=== PATIENT | female | born 1975 | race Caucasian/White ===

== ENCOUNTER 2017-07-07 08:07 | Day surgery (SDC) | payer BC ==
[2017-07-04 11:15] VITALS: BMI 20.6
[2017-07-07] MEDS ORDERED: PROPOFOL 20 ML ONE ×3 (08:43)
[2017-07-07 09:33] VITALS: TEMP 97.5
[2017-07-07 13:09] VITALS: BP 112/61; PULSE 61
--- NOTE | 2017-07-08 12:53 | PATH ---
Surgical Pathology Report Patient Name: DAR TOMLIN [facility]. Rec. #: [id number] /Age/Gender: 1975 (Age: 42) / F Account: [id number] Location: U-ENDOSCOPY Taken: 07/07/2017 Received: 07/07/2017 Reported: 07/08/2017 Physicians: Brina Rowley M.D. Specimen(s) Received A: BX 2ND PORTION DUODENUM AND BULB B: BX ANTRUM Clinical History Preoperative diagnosis: Abdominal pain Postoperative diagnosis: GERD Final Diagnosis A. DUODENUM, SECOND PORTION AND BULB, BIOPSY: DUODENAL MUCOSA WITH NO PATHOLOGIC CHANGES. NO HISTOLOGIC EVIDENCE OF GLUTEN SENSITIVE ENTEROPATHY (CELIAC SPRUE) IDENTIFIED. B. STOMACH, ANTRUM, BIOPSY: FOCAL MILD CHRONIC GASTRITIS. IMMUNOSTAIN FOR H. PYLORI IS NEGATIVE. Electronically Signed Ronnie Hines M.D. Gross Description A. Received in formalin, labeled "biopsy second portion of duodenum and bulb" are 4 pack, irregular portions of soft tissue ranging from 0.2-0.4 cm. in greatest dimension. The specimens are submitted in toto in one cassette. B. Received in formalin, labeled "biopsy antrum" are 4 pack, irregular portions of soft tissue ranging from 0.2-0.5 cm. in greatest dimension. The specimens are submitted in toto in one cassette. 07/07/201707/07/2017
== END 2017-07-07 10:25 | disposition home or self-care (01) ==
LOC: JASU-ENDO 08:07
PROVIDERS: ATTEND Internal Medicine Gastroenterology
PROC: 0DB68ZX Excision of Stomach, Via Natural or Artificial Opening Endoscopic, Diagnostic (ICD-10-PCS; 2017-07-07)
PROC: 0DB98ZX Excision of Duodenum, Via Natural or Artificial Opening Endoscopic, Diagnostic (ICD-10-PCS; principal; 2017-07-07 09:00)
DX: R10.11 Right upper quadrant pain (principal); K21.0 Gastro-esophageal reflux disease with esophagitis
CPT/HCPCS: 84703; 88305-TC; 88342-TC

== ENCOUNTER 2018-10-16 13:50 | Emergency (ER) | payer BC ==
[2018-10-16 13:55] VITALS: BP 115/69; PULSE 74; TEMP 98.3; BMI 21.5
--- NOTE | 2018-10-16 13:58 | PDOC ---
Rapid Medical Evaluation Time Seen by Provider: 10/16/18 13:53 Medical Evaluation: Allergies Allergy/AdvReac Type Severity Reaction Status Date / Time No Known Drug Allergies Allergy Verified 04/11/17 14:16 10/16/18 13:53 I have performed a brief in-person evaluation of this patient. The patient presents with a chief complaint of:L evangelical BLOOM radiating to L ear since yesterday. Reports that she usually gets BLOOM 2 days prior to her menses but states menses not due for another week. States BLOOM does feel similar to prior HAs but has never radiated to her ear. Had to leave work early today. Taking OTC meds w/ no relief. No dizziness, visual changes, n/v. Pertinent physical exam findings:well agatha and stable I have ordered the following:upreg The patient will proceed to the ED for further evaluation. Discharge Disposition - Diagnosis Headache Qualifiers: Headache type: unspecified Headache chronicity pattern: unspecified pattern Intractability: intractable Qualified Code(s): R51 - Headache - Referrals - Patient Instructions - Post Discharge Activity
[2018-10-16] MEDS ORDERED: NAPROXEN 500 MG TABLET (FP) PO ONE (14:22)
[2018-10-16] MEDS ORDERED: KETOROLAC TROMETHAMINE 30 MG/1 ML VIAL IM ONE (14:23)
--- NOTE | 2018-10-16 14:30 | PDOC ---
History of Present Illness - General Chief Complaint: Headache Stated Complaint: MIGRAINE / PRESSURE LT EAR Time Seen by Provider: 10/16/18 13:53 History Source: Patient Exam Limitations: No Limitations - History of Present Illness Initial Comments: 10/16/18 14:23 43YOF with h/o menstrual migraines (states always 2 days before the start of her menstrual period) who p/w left-sided temporal headache gradual onset yesterday morning which resolved overnight with Advil, but recurred this morning about 2 hours after she awakened. She was at work and the pain was continuing, and she also notes ear pressure/popping and eye pressure, as well as radiation to the back left neck. She denies any recent f/c/n/v/d/c, vision changes, n/t/w focally, speech/swallow difficulties, neck rigidity, chest pain, SOB, cough, sore throat, or other symptoms. She has strange sensation when she urinates but does not describe this as pain. LMP was 529 and she endorses slight chance she could be . Has a large amount of stress in her daily life (two toddler twins at home and both she and her work full-time) but this is no different. Past History - Past Medical History Allergies/Adverse Reactions: Allergies Allergy/AdvReac Type Severity Reaction Status Date / Time No Known Drug Allergies Allergy Verified 10/16/18 13:55 Home Medications: Ambulatory Orders Escitalopram Oxalate [Lexapro -] 5 mg PO DAILY 04/11/17 Anemia: No Asthma: No Cancer: No Cardiac Disorders: No CVA: No COPD: No CHF: No Dementia: No Diabetes: No GI Disorders: Yes (INDIGESTION,IBS, CONSTIPATION) Disorders: No HTN: No Hypercholesterolemia: No Liver Disease: Yes (GALLSTONES) Seizures: No Thyroid Disease: No - Surgical History Abdominal Surgery: No Appendectomy: No Cardiac Surgery: No Cholecystectomy: No Lung Surgery: No Neurologic Surgery: No Orthopedic Surgery: No - Suicide/Smoking/Psychosocial Hx Smoking Status: No Smoking History: Never smoked Have you smoked in the past 12 months: No Number of Cigarettes Smoked Daily: 0 Hx Alcohol Use: Yes (socially) Drug/Substance Use Hx: No Substance Use Type: None Hx Substance Use Treatment: No Review of Systems - Review of Systems Able to Perform ROS?: Yes Comments:: 10/16/18 14:32 GEN: no fever, chills, malaise, generalized weakness, or weight change HEENT: ear fullness/popping, eye pressure, sore throat, or vision change CV: no chest pain, palpitations, lightheadedness, syncope, or edema RESP: no cough, wheezing, or SOB GI: no abdominal pain, nausea, vomiting, diarrhea, constipation, or white/black/ bloody stool : no dysuria, hematuria, incontinence, retention, bleeding, or discharge MSK: no neck/back pain, muscle weakness/pain, or joint swelling/pain NEURO: headache, no seizure, vertigo, numbness, tingling, or focal weakness PSYCH: no substance use, no behavior change SKIN: no jaundice, no rash ROS otherwise negative except as noted in HPI *Physical Exam - Vital Signs Last Vital Signs Temp Pulse Resp BP Pulse Ox 98.3 F 74 18 115/69 98 10/16/18 13:53 10/16/18 13:53 10/16/18 13:53 10/16/18 13:53 10/16/18 13:53 - Physical Exam Comments: 10/16/18 14:30 GENERAL: nontoxic and well-appearing, A/Ox4, no distress, answers questions appropriately, laying on ED stretcher with lights out initially sleeping comfortably and easily awakens HEENT: PERRLA, EOMI, moist mucous membranes, TMs and EACs clear, no mastoid tenderness, no sinus tenderness NECK/BACK: no midline ttp, no spinal stepoff or deformity, no hematoma, full ROM , neck supple CARDIOVASCULAR: regular rate/rhythm, normal S1S2, no MGR, strong peripheral pulses, capillary refill <2 seconds, extremities wwp, no edema LUNGS/RESPIRATORY: no respiratory distress, CTAB GI/ABDOMEN: symmetric [id number], normoactive BS, soft, no ttp, no midline pulsatile masses : no CVA tenderness EXTREMITIES: no muscle atrophy, no acute deformity SKIN: warm and dry, no pallor, no jaundice, no rash, no bruising, no skin breakdown, no cuts, no lesions NEUROLOGICAL: GCS 15, CN II-XII grossly intact, 5/5 strength proximally and distally, no facial droop, 3 beats horizontal nystagmus on horizontal gaze bilaterally Medical Decision Making - Medical Decision Making 10/16/18 14:33 Adult female Pt p/w headache, no reported mechanism for injury, no new red flag symptoms (see HPI). BLOOM not worse on awakening in the AM, no B symptoms, trauma, fever, syncope, vision loss, n/t/w focally, sudden onset, etc. Initial Vital Signs Temp Pulse Resp BP Pulse Ox 98.3 F 74 18 115/69 98 10/16/18 13:53 10/16/18 13:53 10/16/18 13:53 10/16/18 13:53 10/16/18 13:53 Exam: As noted in Physical Exam section. DDX IBNLT: most likely primary BLOOM syndrome (tension/migraine/cluster/other incl. primary cough BLOOM, exertional BLOOM, postcoital BLOOM), trigeminal neuralgia, zoster, SAH (mykel. sudden onset), venous sinus thrombosis (mykel. OCP// menstruating), subdural or epidural hematoma (mykel. after trauma or childbirth), ruptured/acutely expanded aneurysm, preeclampsia/eclampsia, encephalitis, meningitis, glaucoma, atypical PNA, idiopathic intracranial hypertension, GCA ( uncommon <50 yo), mass lesion, brain metastasis (mykel. known CA patients and/or BLOOM with increasing severity/frequency), brain abscess (mykel. immunocompromised patients), DKA, CO poisoning, etc. W/U ordered: UA UCx hCG TX ordered: toradol IM to start Unlikely trigeminal neuralgia as Pt's pain is not burning/tingling. Unlikely cluster BLOOM given no scleral injection, females LL to have cluster BLOOM, she is a nonsmoker. 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 Unlikely zoster as there is no skin tenderness, no lesions. Unlikely SAH given lack of sudden onset, similar headaches before, nonfocal neuro. Unlikely ruptured/expanded aneurysm given nonfocal neuro, no h/o sentinel bleed- like BLOOM. Unlikely glaucoma given no vision change, no orbital abnormalities on exam, PERRLA. Unlikely encephalitis/meningitis as Pt's neuro exam is wnl, no fever/AMS/neck pain/stiffness. Unlikely GCA as Pt is not elderly, no jainism tenderness, jaw claudication, vision change, etc. Unlikely mass lesion/tumor as BLOOM has not been worsening over time, not exacerbated at night. Laboratory Tests 10/16/18 10/16/18 15:03 15:03 Urine Color Yellow Urine Appearance Clear Urine pH 7.0 Ur Specific [place] 1.004 L Urine Protein Negative Urine Glucose (UA) Negative Urine Ketones Negative Urine Blood Negative Urine Nitrite Negative Urine Bilirubin Negative Urine Urobilinogen 0.2 Ur Leukocyte Esterase Negative Urine HCG, Qual Negative Reassessment: Patient states feels much better after Toradol and Tylenol, wants to go home. This patient has gotten significant relief of symptoms while in the ED. On last reassessment, vitals are wnl, pain is reasonably controlled, and exam is benign. Workup is not concerning for emergency-level pathology at this time. This patient is appropriate for discharge home w/ close outpatient f/u. She is comfortable with this plan. She will take Motrin and/or Tylenol for pain. She will follow up with her primary care provider in the next 1-3 days. She has not previously seen a neurologist and referral info is given for [facility] neurologist. Specific return precautions are discussed and they will come back to the ER if necessary. *DC/Admit/Observation/Transfer Diagnosis at time of Disposition: Headache Qualifiers: Headache type: unspecified Headache chronicity pattern: unspecified pattern Intractability: intractable Qualified Code(s): R51 - Headache - Discharge Dispostion Disposition: HOME Condition at time of disposition: Stable Decision to Admit order: No - Referrals Referrals: Torsten Lorenzana MD [Staff Physician] - - Patient Instructions Printed Discharge Instructions: DI for Headache Additional Instructions: You were seen in the ER for a headache. We did an exam and lab work on your urine, and we did not find any signs of an infection or any emergency. Your pain improved with the medications we gave you here in the ER. After our assessment, we believe you are not having a medical emergency and you are safe to go home. Please take [id number] pain relievers like naproxen (Aleve) and/or Tylenol. Stay very well-hydrated, and try avoiding foods containing the chemicals tyramine and nitrates (such as chocolate, cheese, and processed meats ) because these are associated with migraine-type headaches. Follow up with your primary care provider(s) in the next 1-3 days. We are also giving you referral information for our neurologist to have an evaluation for your headaches. Call their clinic [facility], tell them you were seen in the ER, and tell them you need an appointment. Please come back to the ER at any time, 24 hours a day, for any new or worsening symptoms, like worsening headache, new numbness/ tingling, fainting, dizziness, new vision changes, high fever, or other symptoms. If you are having symptoms that make it unsafe to drive, please call 911. - Post Discharge Activity Forms/Work/School Notes: Back to Work
[2018-10-16] MEDS ORDERED: KETOROLAC TROMETHAMINE 30 MG/1 ML VIAL ONE (14:56)
[2018-10-16] MEDS ORDERED: NAPROXEN 500 MG TABLET (FP) ONE (14:56)
[2018-10-16 15:17] LABS: URINE APPEARANCE CLEAR; URINE BILIRUBIN NEGATIVE (NEGATIVE); URINE COLOR YELLOW; URINE GLUCOSE (UA) NEGATIVE (NEGATIVE); URINE KETONE NEGATIVE (NEGATIVE); URINE LEUK ESTERASE NEGATIVE (NEGATIVE); URINE NITRITE NEGATIVE (NEGATIVE); URINE PROTEIN NEGATIVE (NEGATIVE); URINE UROBILINOGEN 0.2 mg/dL (0.2-1.0)
[2018-10-16] MEDS ORDERED: ACETAMINOPHEN 325 MG TABLET (FP) PO ONE (15:34)
[2018-10-16] MEDS ORDERED: ACETAMINOPHEN 325 MG TABLET (FP) ONE (15:46)
--- NOTE | 2018-10-16 15:58 | PDOC ---
Documentation entered by Rajendra Finch SCRIBE, acting as scribe for Alyssa Chavez MD. Alyssa Chavez MD: This documentation has been prepared by the Stef dean Daniel, SCRIBE, under my direction and personally reviewed by me in its entirety. I confirm that the documentation accurately reflects all work, treatment, procedures, and medical decision making performed by me. Attending Attestation - Resident Resident Name: Lenore Harvey - ED Attending Attestation I have performed the following: I have examined & evaluated the patient, The case was reviewed & discussed with the resident, I agree w/resident's findings & plan, Exceptions are as noted - HPI HPI: 10/16/18 15:12 The patient is a 43 year old female with a past medical history of migraines ( usually occur 2 days before her periods) here today for evaluation of headache since yesterday morning. The patient reports that she has been having a left sided headache which is different than her usual migraine in that this is not her usual timing for her headache. She notes associated left eye and ear pressures and states that her headache radiates down her left neck. She describes the ear pressure as the popping like when you're in an elevator. That has happened 2-3 times. The headache was of gradual onset, like her usual menstrual migraines. Denies sharp neck pain. Patient denies dizziness, weakness/numbness. Denies fever, chills. Denies chest pain, shortness of breath. Denies nausea, vomiting, diarrhea, abdominal pain. Denies any change in strength or sensation. Denies vision changes. Allergies: NKDA Social history: Denies tobacco, illicit drug, alcohol use. - Physicial Exam PE: 10/16/18 15:12 agree with resident exam - Medical Decision Making 10/16/18 15:50 43yo F hx menstrual migraines presents to the ED with migraine that is different than her usual migraines because of 3 associated episodes of ear popping (not ringing) and because the timing was off. 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 I answered all of the patient's questions. The patient was satisfied with the care received and felt comfortable with the discharge plan and treatment plan. The patient will call their primary care physician within 24 hours to arrange follow-up and will return to the Emergency Department with any new, persistent or worsening symptoms.
== END 2018-10-16 15:54 | disposition home or self-care (01) ==
LOC: JER 13:50
PROC: 3E0233Z Introduction of Anti-inflammatory into Muscle, Percutaneous Approach (ICD-10-PCS; principal; 2018-10-16)
DX: R51 Headache (principal)
CPT/HCPCS: 81003; 84703; 87086; 99281-25

== ENCOUNTER 2021-10-09 15:56 | Emergency (ER) | payer BC ==
[2021-10-09 16:20] VITALS: BP 106/67; PULSE 88; TEMP 98.6; BMI 22.4
[2021-10-09] MEDS ORDERED: SODIUM CHLORIDE FOR INHALATION 3 ML VIAL.NEB IH ONE ×2 (16:34→16:36)
== END 2021-10-09 16:58 | disposition home or self-care (01) ==
LOC: FER 15:56
DX: R05.1 Acute cough (principal); J30.9 Allergic rhinitis, unspecified
CPT/HCPCS: 99283-25

== ENCOUNTER 2021-12-10 04:41 | Day surgery (SDC) | payer BC ==
[2021-12-06 09:23] VITALS: BMI 22.3
[2021-12-10] MEDS ORDERED: oxyCODONE HCL 5 MG TABLET PO PRN (11:07)
[2021-12-10] MEDS ORDERED: ONDANSETRON 4 MG/2 ML VIAL IVPUSH PRN (11:07)
[2021-12-10] MEDS ORDERED: LACTATED RINGERS SOLUTION 1,000 ML IV SCH (11:15)
[2021-12-10] MEDS ORDERED: PROPOFOL 20 ML ONE ×2 (12:15)
[2021-12-10] MEDS ORDERED: MIDAZOLAM HCL 2 MG/2 ML SINGLE DOSE VIAL ONE ×2 (12:15→13:33)
[2021-12-10] MEDS ORDERED: ceFAZolin SODIUM 1 GM VIAL IVPB ONE (13:00)
[2021-12-10 15:10] VITALS: RESP 18
[2021-12-10 15:40] VITALS: BP 106/59; PULSE 78; TEMP 98.2
== END 2021-12-10 16:16 | disposition home or self-care (01) ==
LOC: JASU-SURG 04:41
PROVIDERS: ATTEND Obstetrics & Gynecology
PROC: 0UJD8ZZ Inspection of Uterus and Cervix, Via Natural or Artificial Opening Endoscopic (ICD-10-PCS; 2021-12-10)
PROC: 0UDB7ZX Extraction of Endometrium, Via Natural or Artificial Opening, Diagnostic (ICD-10-PCS; principal; 2021-12-10 11:45)
DX: N92.1 Excessive and frequent menstruation with irregular cycle (principal)
CPT/HCPCS: 81025; 88305-TC; 94760

== ENCOUNTER 2022-11-06 05:30 | Day surgery (SDC) | payer BC ==
[2022-11-04 15:17] VITALS: BMI 21.0
[2022-11-06 07:32] VITALS: TEMP 98
[2022-11-06 10:01] VITALS: BP 107/68; PULSE 64; RESP 18
== END 2022-11-06 09:25 | disposition home or self-care (01) ==
LOC: JASU-ENDO 05:30
PROVIDERS: ATTEND Internal Medicine Gastroenterology
PROC: 0DB98ZX Excision of Duodenum, Via Natural or Artificial Opening Endoscopic, Diagnostic (ICD-10-PCS; 2022-11-06)
PROC: 0DB78ZX Excision of Stomach, Pylorus, Via Natural or Artificial Opening Endoscopic, Diagnostic (ICD-10-PCS; 2022-11-06)
PROC: 0DB28ZX Excision of Middle Esophagus, Via Natural or Artificial Opening Endoscopic, Diagnostic (ICD-10-PCS; 2022-11-06)
PROC: 0DB38ZX Excision of Lower Esophagus, Via Natural or Artificial Opening Endoscopic, Diagnostic (ICD-10-PCS; 2022-11-06)
PROC: 0DJD8ZZ Inspection of Lower Intestinal Tract, Via Natural or Artificial Opening Endoscopic (ICD-10-PCS; principal; 2022-11-06 08:00)
DX: Z12.11 Encounter for screening for malignant neoplasm of colon (principal); K59.89 Other specified functional intestinal disorders; K64.8 Other hemorrhoids; Z83.71 Family history of colonic polyps; K21.00 Gastro-esophageal reflux disease with esophagitis, without bleeding; K44.9 Diaphragmatic hernia without obstruction or gangrene; R12 Heartburn; R10.13 Epigastric pain
CPT/HCPCS: 81025; 88305-TC; 88342-TC

== ENCOUNTER 2022-11-30 09:33 | Emergency (ER) | payer BC ==
[2022-11-30 09:41] VITALS: BP 123/80; PULSE 87; RESP 20; TEMP 98.8; BMI 20.6
[2022-11-30] MEDS ORDERED: ALPRAZolam 0.25 MG TABLET PO ONE (10:14)
[2022-11-30] MEDS ORDERED: ALPRAZolam 0.25 MG TABLET ONE ×2 (10:16→11:24)
[2022-11-30 10:44] LABS: INR 1.12 (0.83-1.09)
[2022-11-30 10:45] LABS: HEMATOCRIT 40.5 % (32.4-45.2); HEMOGLOBIN 13.9 G/dL (10.7-15.3); MCH 31.4 pg (25.7-33.7); MCHC 34.4 g/dl (32.0-36.0); MEAN CELL VOLUME 91.2 fl (80-96); MEAN PLT VOLUME 6.7 fl (7.5-11.1); PLATELET COUNT 218.4 10^3/uL (134-434); RBC 4.44 10^6/uL (3.60-5.2); RDW 14.6 % (11.6-15.6); WHITE BLOOD COUNT 6.1 10^3/uL (4.0-10.8)
[2022-11-30 10:46] LABS: ACTIVATED PTT 32.9 SECONDS (25.2-36.5)
[2022-11-30 10:52] LABS: ALBUMIN 4.8 g/dl (3.4-5.0); BILIRUBIN,TOTAL 0.7 mg/dl (0.2-1); BLOOD UREA NITROGEN 9.1 mg/dl (7-18); CALCIUM 9.7 mg/dl (8.5-10.1); CREATININE 0.7 mg/dl (0.6-1.3); PLATELET ESTIMATE ADEQUATE; POTASSIUM 4.5 mmol/L (3.5-5.1); SGOT/AST 16.1 U/L (15-37); SGPT/ALT 11.3 U/L (7-52); TOT PROT 7.9 g/dl (6.4-8.2)
[2022-11-30] MEDS ORDERED: ALPRAZolam 1 MG TABLET PO PRN (11:06)
== END 2022-11-30 11:46 | disposition home or self-care (01) ==
LOC: FER 09:33
DX: F41.9 Anxiety disorder, unspecified (principal); R63.0 Anorexia; R63.4 Abnormal weight loss; G47.00 Insomnia, unspecified; F45.8 Other somatoform disorders; R00.2 Palpitations; R06.02 Shortness of breath; F32.9 Major depressive disorder, single episode, unspecified
CPT/HCPCS: 36415; 80053; 84439; 84443; 85027; 85610; 85730; 93005; 99284-25

== ENCOUNTER 2023-08-25 04:25 | Day surgery (SDC) | payer BC ==
[2023-08-20 16:50] VITALS: BMI 21.0
[2023-08-25] MEDS ORDERED: PROPOFOL 20 ML ONE (10:08)
[2023-08-25] MEDS ORDERED: MIDAZOLAM HCL 2 MG/2 ML SINGLE DOSE VIAL ONE (10:08)
[2023-08-25] MEDS ORDERED: FENTANYL CITRATE/PF 50 MCG/ML VIAL ONE ×4 (10:08→12:40)
[2023-08-25] MEDS ORDERED: ACETAMINOPHEN 325 MG TABLET (FP) PO PRN (10:39)
[2023-08-25] MEDS: ceFAZolin SODIUM 1 GM VIAL IVPB ONE ×2 (11:10)
[2023-08-25] MEDS ORDERED: DEXAMETHASONE SOD PHOSPHATE 4 MG/1 ML VIAL ONE (11:13)
[2023-08-25] MEDS ORDERED: ONDANSETRON 4 MG/2 ML VIAL ONE ×2 (11:13→12:40)
[2023-08-25] MEDS: SILVER NITRATE 75% APPLIC STCK 1 PKT EACH TP ONE (11:45)
[2023-08-25] MEDS: ONDANSETRON 4 MG/2 ML VIAL IVPUSH PRN (12:44)
[2023-08-25] MEDS: LACTATED RINGERS SOLUTION 1,000 ML IV SCH (13:05)
[2023-08-25 13:19] VITALS: BP 107/56; PULSE 78; RESP 18; TEMP 98
== END 2023-08-25 14:12 | disposition home or self-care (01) ==
LOC: JASU-SURG 04:25
PROVIDERS: ATTEND Obstetrics & Gynecology
PROC: 0U5B8ZZ Destruction of Endometrium, Via Natural or Artificial Opening Endoscopic (ICD-10-PCS; principal; 2023-08-25 10:00)
DX: N92.1 Excessive and frequent menstruation with irregular cycle (principal); D25.9 Leiomyoma of uterus, unspecified
CPT/HCPCS: 81025; 94760